=== PATIENT | female | born 1990 | race Caucasian/White ===

== ENCOUNTER → 2018-05-06 11:14 | Outpatient (CLI) | payer MEDICAID, SELFPAY ==
[2018-05-06 11:43] LABS: Basophils % 0.3 % (0.1-2.0); Eosinophils # 0.1 K/mm3 (0.0-0.4); Eosinophils % 1.4 % (0.1-12.0); Hematocrit 40.6 % (37.0-47.0); Hemoglobin 13.1 g/dL (12.2-16.2); Lymphocytes # 1.5 K/mm3 (0.7-4.5); Lymphocytes % 23.6 K/mm3 (10-50); Mean Corpuscular HGB Conc 32.3 g/dL (31.8-35.4); Mean Corpuscular Hemoglobin 29.8 pg (27.0-31.2); Mean Corpuscular Volume 92.3 fl (81-99); Mean Platelet Volume 8.3 fl (7.4-10.4); Monocytes # 0.4 K/mm3 (0.1-1.0); Monocytes % 6.7 % (1.7-9.3); Neutrophils # 4.4 K/mm3 (1.8-7.8); Platelet Count 203 K/mm3 (142-424); Red Cell Distribution Width 12.3 % (11.5-17.5); White Blood Count 6.4 K/mm3 (4.8-10.8)
--- NOTE | 2018-05-06 14:54 | US_ITS ---
US OB transvaginal HISTORY: ITS.REASON: US OB dates ORDERING PHYSICIAN: Sánchez Mead MD PATIENT AGE: 27 years COMPARISON: None FINDINGS: An intrauterine gestational sac is present with a pole with a crown-rump length of 3 cm correlating to gestational age of 10 weeks 0 days. heart tones are present with an FHR of 174 bpm's. Yolk sac is noted. The amnion and chorion have not yet fused. Adnexa: 17 mm left corpus luteum cyst. IMPRESSION: Live intrauterine gestation at 10 weeks 0 days as described above. Estimated due date by ultrasound is 12/05/2018
[2018-05-08 20:02] LABS: HIV Screen 4th Generation wRfx Non Reactive (Non Reactive); Rapid Plasma Reagin Ab Titer Non Reactive (NonRea<1:1); Rubella Antibodies, IgG 1.94 index (Immune >0.99)
[2018-05-08 20:03] LABS: Hepatitis B Surface Antigen Negative (Negative); Hepatitis C Antibody <0.1 s/co ratio (0.0-0.9)
== END ==
PROVIDERS: Family Provider Family Medicine; PCP Pediatrics; Visit Provider Nurse Practitioner Obstetrics & Gynecology
DX: O26.841 Uterine size-date discrepancy, first trimester (principal); Z34.90 Encounter for supervision of normal pregnancy, unspecified, unspecified trimester
CPT/HCPCS: 36415; 76830; 85025; 86592; 86703; 86762; 86850; 87340; 87380; G0432

== ENCOUNTER → 2018-07-16 08:26 | Outpatient (CLI) | payer MEDICAID, SELFPAY ==
--- NOTE | 2018-07-16 08:28 | US_ITS ---
US OB /maternal detail: INDICATION: ITS.REASON: US OB Complete ORDERING PHYSICIAN: Sánchez Mead MD PATIENT AGE: 27 years TECHNIQUE: ultrasound transabdominal scanning. COMPARISON: No previous relevant studies. FINDINGS: Single viable intrauterine gestation. Breech position. Placenta: Anterior placenta grade 1. There is average amount fluid. The cervix appears satisfactory. Closed and measuring 4 cm in length. Complete survey performed and was unremarkable on the submitted images as in PACS. No discrete anomalies identified on survey imaging by technologist. Active fetus. Three-vessel cord with satisfactory umbilical cord insertion. 4- chamber heart noted. Survey of brain & ventricles unremarkable. Face and neck survey unremarkable. Diaphragm and chest views unremarkable. Abdomen: Both kidneys noted and unremarkable. Stomach noted and satisfactory. Spine: Survey of the spine satisfactory with no anomalies identified nor imaged. Both arms and legs noted. Amniotic Fluid: Adequate. Maternal adnexa: No significant findings. Measurements: Average ultrasound age 19w3d. Gestational Age 19w5d. Estimated due date by ultrasound age 0112/07/2018. Estimated weight 303 grams. BPD = 19w1d OFD = 20w3d HC = 19w1d AC = 20w2d FL = 19w1d Growth Percentile= 40% based on established due date of 12/05/2018 Heart Rate = 144 Cerebellum = 20w1d Humerus = 19w3d HC/AC is 1.09 91.09-1.26). CI is 73% (70-86%). FL/BPD is 68%. FL/AC is 20%. IMPRESSION: There is a single live fetus present in breech presentation with average ultrasound age of 19 weeks 3 days. No obvious anomalies. All parameters correlate. Anterior placenta with average amniotic fluid volume. Please see above for detail
== END ==
PROVIDERS: Family Provider Family Medicine; PCP Pediatrics; Visit Provider Nurse Practitioner Obstetrics & Gynecology
DX: Z36.0 Encounter for antenatal screening for chromosomal anomalies (principal); Z3A.19 19 weeks gestation of pregnancy; Z34.90 Encounter for supervision of normal pregnancy, unspecified, unspecified trimester
CPT/HCPCS: 76811

== ENCOUNTER 2018-08-11 19:40 | Outpatient (CLI) | payer MEDICAID, SELFPAY ==
[2018-08-11 20:00] VITALS: BP 113/63; PULSE 77; RESP 17; O2SAT 100
[2018-08-11 20:30] VITALS: BMI 17.2
[2018-08-11 20:35] VITALS: BMI 17.2
[2018-08-11 20:40] VITALS: BP 107/38; PULSE 88; RESP 18; TEMP 36.8; O2SAT 100
[2018-08-11 20:46] LABS: Microscopic, Urine URINE MICROSCOPIC (MICROSCOPIC)
[2018-08-11 20:48] LABS: Appearance,Urine CLEAR (Clear); Bilirubin,Urine Negative (Negative); Blood, Urine Negative (Negative); Color,Urine YELLOW (Yellow); Glucose,Urine (UA) Negative (Negative); Ketones,Urine TRACE (Negative); Leukocyte Esterase,Urine 3+ (Negative); Nitrate,Urine Negative (Negative); Protein,Urine Negative (Negative); Specific Gravity, Urine 1.015 (1.005-1.030); Urobilinogen,Urine 0.2 EU/dl (0.2)
[2018-08-11 21:09] LABS: Amphetamine/Metha Screen,Urine Negative ng/mL (<1000); Bacteria,Urine 1+ /lpf; Barbiturates Screen,Urine Negative ng/mL (<200); Benzodiazepines Screen,Urine Negative ng/mL (<200); Cannabinoid Screen,Urine Positive ng/mL (<50); Cocaine Screen,Urine Negative ng/mL (<300); Methadone Screen,Urine Negative ng/mL (<300); Mucus,Urine 1+ /lpf; Opiate Screen,Urine Negative ng/mL (<300); Phencyclidine Screen,Urine Negative ng/mL (<25); Squamous Epithelial Cell,Urine TNTC #/hpf (0-5); WBC,Urine 20-50 #/hpf (0-3)
== END 2018-08-11 21:45 | disposition home or self-care (01) ==
LOC: OBOUT 19:43 → OB 19:43
PROVIDERS: PCP Nurse Practitioner Obstetrics & Gynecology; Visit Provider Obstetrics & Gynecology
DX: O26.892 Other specified pregnancy related conditions, second trimester (principal); Z3A.23 23 weeks gestation of pregnancy; R42 Dizziness and giddiness; R51 Headache
CPT/HCPCS: 59025; 80305; 81001; 87086

== ENCOUNTER 2018-09-24 00:24 | Outpatient (CLI) | payer MEDICAID, SELFPAY ==
[2018-09-24 00:34] VITALS: BMI 17.9
[2018-09-24 00:44] VITALS: BP 109/66; PULSE 90; RESP 16; TEMP 36.7; O2SAT 98; BMI 17.9
[2018-09-24 00:56] LABS: Microscopic, Urine URINE MICROSCOPIC (MICROSCOPIC)
[2018-09-24 01:10] LABS: Appearance,Urine CLEAR (Clear); Bilirubin,Urine Negative (Negative); Blood, Urine Negative (Negative); Color,Urine YELLOW (Yellow); Glucose,Urine (UA) Negative (Negative); Ketones,Urine TRACE (Negative); Leukocyte Esterase,Urine 2+ (Negative); Nitrate,Urine Negative (Negative); Protein,Urine Negative (Negative); Urobilinogen,Urine 0.2 EU/dl (0.2)
[2018-09-24 01:18] LABS: Bacteria,Urine 1+ /lpf; Mucus,Urine 1+ /lpf
[2018-09-24 01:43] LABS: Amphetamine/Metha Screen,Urine Negative ng/mL (<1000); Barbiturates Screen,Urine Negative ng/mL (<200); Benzodiazepines Screen,Urine Negative ng/mL (<200); Cannabinoid Screen,Urine Positive ng/mL (<50); Cocaine Screen,Urine Negative ng/mL (<300); Methadone Screen,Urine Negative ng/mL (<300); Opiate Screen,Urine Negative ng/mL (<300); Phencyclidine Screen,Urine Negative ng/mL (<25)
== END 2018-09-24 04:30 | disposition home or self-care (01) ==
LOC: OBOUT 00:25 → OB 00:26
PROVIDERS: PCP Nurse Practitioner Family; Visit Provider Obstetrics & Gynecology
DX: O47.03 False labor before 37 completed weeks of gestation, third trimester (principal); Z3A.30 30 weeks gestation of pregnancy
CPT/HCPCS: 59025; 80305; 81001; 87086; 96360; 96372; J0595

== ENCOUNTER 2018-10-17 03:52 | Observation (INO) ==
[2018-10-17 05:06] LABS: Appearance,Urine CLOUDY (Clear); Bilirubin,Urine Negative (Negative); Blood, Urine Negative (Negative); Color,Urine YELLOW (Yellow); Glucose,Urine (UA) Negative (Negative); Ketones,Urine Negative (Negative); Leukocyte Esterase,Urine 1+ (Negative); PH,Urine 7.5 (5.0-8.5); Protein,Urine Negative (Negative); Urobilinogen,Urine 0.2 EU/dl (0.2)
[2018-10-17 05:08] LABS: Amorphous Sediment,Urine 4+ /lpf; Microscopic, Urine URINE MICROSCOPIC (MICROSCOPIC)
[2018-10-17 05:13] LABS: Amphetamine/Metha Screen,Urine Negative ng/mL (<1000); Barbiturates Screen,Urine Negative ng/mL (<200); Benzodiazepines Screen,Urine Negative ng/mL (<200); Cannabinoid Screen,Urine Negative ng/mL (<50); Cocaine Screen,Urine Negative ng/mL (<300); Methadone Screen,Urine Negative ng/mL (<300); Opiate Screen,Urine Negative ng/mL (<300); Phencyclidine Screen,Urine Negative ng/mL (<25)
[2018-10-17 06:40] LABS: Basophils % 0.1 % (0.1-2.0); Eosinophils # 0.1 K/mm3 (0.0-0.4); Eosinophils % 0.3 % (0.1-12.0); Hematocrit 33.8 % (37.0-47.0); Hemoglobin 11.5 g/dL (12.2-16.2); Lymphocytes % 10.9 % (10-50); Mean Corpuscular HGB Conc 34.1 g/dL (31.8-35.4); Mean Corpuscular Hemoglobin 32.5 pg (27.0-31.2); Mean Corpuscular Volume 95.3 fl (81-99); Mean Platelet Volume 8.3 fl (7.4-10.4); Monocytes # 0.7 K/mm3 (0.1-1.0); Monocytes % 3.8 % (1.7-9.3); Neutrophils # 15.7 K/mm3 (1.8-7.8); Neutrophils % 84.8 % (37.0-80.0); Platelet Count 206 K/mm3 (142-424); Red Blood Count 3.55 M/mm3 (4.20-5.40); Red Cell Distribution Width 13.6 % (11.5-17.5); White Blood Count 18.5 K/mm3 (4.8-10.8)
[2018-10-17 06:45] LABS: Anion Gap 13.9 mEq/L (5-15); Calcium 9.2 mg/dL (8.5-10.1)
[2018-10-17 06:48] LABS: Potassium 2.9 mmoL/L (3.5-5.1)
--- NOTE | 2018-10-17 06:54 | Progress Note ---
Internal Medicine - PN: Subj Interval history: This 27-year-old 2, para 1, Ab0 white female (previous section) has had care with Dr. Mead. In the last 2 weeks she has been here, at [facility], and at [facility] with complaints of contractions. She has been variously told that her cervix is "closed, fingertip, 1-2 cm, 2-3 cm" by various examiners. After coitus later this morning she began jennifer at approximately 0200 and arrived by EMS with strong contractions. Examination by the labor room nurse revealed her cervix to be a fingertip. She was given IV fluids and a dose of Brethine which initially relaxed her contractions, but they returned and she was given a second dose of Brethine, but continued to contract. Her urinalysis shows 1+ leukocytes. Her tox screen is negative. My exam reveals her cervix to be 50%, the fingertip, with a high presenting part. Bag of water intact. She has been given a first dose of steroid (second dose in 24 hours) and started on IV ampicillin (2 g every 6 hours). She has also been started on intravenous magnesium sulfate for neuroprotection and to allay contractions. Dr. Blandon will be assuming care of this morning. Exam Vital signs and Labs for Last 24 Hours: Temp Pulse Resp BP Pulse Ox 98.2 F 94 H 18 113/79 98 10/17/18 04:20 10/17/18 04:20 10/17/18 04:20 10/17/18 04:20 10/17/18 04:20 Laboratory Results - last 24 hr 10/17/18 04:57: Urine Color Yellow, Urine Appearance Cloudy, Urine pH 7.5, Ur Specific [place] 1.020, Urine Protein Negative, Urine Glucose (UA) Negative, Urine Ketones Negative, Urine Blood Negative, Urine Nitrate Negative, Urine Bi lirubin Negative, Urine Urobilinogen 0.2, Ur Leukocyte Esterase 1+ A, Urine WBC 3-5, Amorphous Sediment 4+ 10/17/18 04:57: Urine Opiates Screen Negative, Urine Methadone Screen Negative, Ur Barbituates Screen Negative, Ur Phencyclidine Scrn Negative, Ur Amphetamines Screen Negative, U Benzodiazepines Scrn Negative, Urine Cocaine Screen Negative, U Marijuana (THC) Screen Negative 10/17/18 06:25: WBC 18.5 H, RBC 3.55 L, Hgb 11.5 L, Hct 33.8 L, MCV 95.3, MCH 32.5 H, MCHC 34.1, RDW 13.6, Plt Count 206, MPV 8.3, Neut % (Auto) 84.8 H, Lymph % (Auto) 10.9, [place] % (Auto) 3.8, Eos % (Auto) 0.3, Baso % (Auto) 0.1, Neut # (Auto) 15.7 H, Lymph # (Auto) 2.0, [place] # (Auto) 0.7, Eos # (Auto) 0.1, Baso # (Auto) 0.0 10/17/18 06:25: Sodium 137, Potassium 2.9 L*, Chloride 102, Carbon Dioxide 24, Anion Gap 13.9, BUN 8, Creatinine 0.58, Estimated Creat Clear 119, Estimated GFR 127, Est GFR ( Amer) 153, Glucose 105, Calcium 9.2, Magnesium 1.1 L I & O for Last 24 hours: Intake & Output 10/14/18 10/15/18 10/16/18 10/17/18 11:59 11:59 11:59 11:59 Weight 112 lb
[2018-10-17 07:18] LABS: Lymphocytes % 10 % (10-50); Monocytes % 2 % (2-9); Neutrophils % 88 % (42-76); Total Cells Counted 100
[2018-10-17 11:44] VITALS: BP 108/55
== END 2018-10-17 17:45 | disposition left against medical advice (07) ==
LOC: OBOUT 03:52 → OB 03:57 → INTOOBSV 05:55
PROVIDERS: ADMIT Obstetrics & Gynecology; ATTEND Nurse Practitioner Obstetrics & Gynecology

== ENCOUNTER 2018-10-18 15:09 | Outpatient (CLI) | payer MEDICAID, SELFPAY ==
[2018-10-18 15:19] VITALS: RESP 20; TEMP 36.7; O2SAT 100; BMI 18.4; BMI 40.6
== END 2018-10-18 16:45 | disposition home or self-care (01) ==
LOC: OBOUT 15:11 → OB 15:11
PROVIDERS: PCP Nurse Practitioner; Visit Provider Obstetrics & Gynecology
DX: O60.03 Preterm labor without delivery, third trimester (principal); Z3A.33 33 weeks gestation of pregnancy
CPT/HCPCS: 96372

== ENCOUNTER → 2018-11-04 17:56 | Outpatient (CLI) | payer MEDICAID, SELFPAY ==
[2018-11-04 21:07] LABS: Amphetamine/Metha Screen,Urine Negative ng/mL (<1000); Barbiturates Screen,Urine Negative ng/mL (<200); Benzodiazepines Screen,Urine Negative ng/mL (<200); Cannabinoid Screen,Urine Positive ng/mL (<50); Cocaine Screen,Urine Negative ng/mL (<300); Methadone Screen,Urine Negative ng/mL (<300); Opiate Screen,Urine Negative ng/mL (<300); Phencyclidine Screen,Urine Negative ng/mL (<25)
[2018-11-10 17:34] LABS: Buprenorphine, Urine Negative (Cutoff=10)
== END ==
PROVIDERS: Visit Provider Nurse Practitioner Obstetrics & Gynecology
DX: Z34.90 Encounter for supervision of normal pregnancy, unspecified, unspecified trimester (principal)
CPT/HCPCS: 80305; 80307; 86403

== ENCOUNTER → 2018-11-11 12:50 | Outpatient (CLI) | payer MEDICAID, SELFPAY ==
--- NOTE | 2018-11-11 12:51 | US_ITS ---
US OB biophysical profile: INDICATION: ITS.REASON: US OB BPP Growth- SGA ORDERING PHYSICIAN: Sánchez Mead MD PATIENT AGE: 28 years TECHNIQUE: ultrasound transabdominal scanning. COMPARISON: Previous complete anatomic survey ultrasound 07/16/2018- at which time average ultrasound age with 19 weeks 3 days FINDINGS: Single viable intrauterine gestation. Cephalic position Currently. Placenta: Anterior mature placenta with basal calcification grade 3 cervix appears satisfactory. Closed and measuring 3.25 in length. Limited survey performed and was unremarkable on the submitted images as in PACS. No discrete anomalies identified on survey imaging by technologist. Active fetus.Three-vessel cord with satisfactory umbilical cord insertion. Survey of brain & ventricles & posterior fossa unremarkable Limited Face and neck survey unremarkable. Nasion intact Diaphragm and chest views unremarkable. 4- chamber heart imaged. Cine loop included.. Abdomen: Both kidneys noted and unremarkable. Stomach /bladder identified. Only limited survey spine at this setting but no apparent anomalies identified nor imaged. Both arms and legs noted. Appears to be a female fetus. Amniotic Fluid: Adequate. . Measurements: Average ultrasound age 35 week 2 day. Gestational Age 37 week 0 day based on LMP 02/25/2018. Estimated due date by ultrasound age 112/14/2018. Estimated weight 2361-g grams. +/- 345 g . growth Percentile 4% (3-97%) BPD = 35 week 6 day OFD = not obtained HC = 37 week 3 day. AC = 32 weeks 6 day FL = 35 week 0 day As above abdominal circumference has not progressed to the degree of other growth measurements. This may reflect early asymmetric IUGR. Also Specifically graph in pacs Plotted progression of AC , EFW, BPD, FL versus previous scan at 20 week scan. Previously all parameters mediaN value on the 20 week scan, but now all parameters have fallen somewhat. However the abdominal circumference is over 2 standard deviations below anticipated growth pattern. . MAISHA = 14.12 with largest pocket] quadrant measuring 4 cm size. Heart Rate = 150 BPM. ======= SD ratio = 2.4 on the second sampling Ri = 0.58 with SD ratio = 3.0 on first sampling with Ri = 0.58 ====== BIOPHYSICAL PROFILE: 8 of possible 8 points 2+ score for each category: breathing; Movement; tone; Amniotic fluid volume HC/AC = 1.14.(1.09-1.26.) CI = 75%.(70-86%). FL/BPD is 77% (71-87%.) FL/AC is 24% (20-24 %.] =======IMPRESSION: 35 week 2 day Average Ultrasound Age.. Cephalic position Anterior mature placenta.grade 3 Biophysical Profile:. 8 of 8 points . MAISHA 14.12 Please note the growth plots PACS when compared to the 20 week scan.... All parameters have fallen somewhat below the mean, however I would note that the abdominal circumference has fallen greater than 2 standard deviations below the mean & fallen more than other measured parameters, May reflect partial asymmetric IUGR pattern . Otherwise Today's follow-up limited Anatomical survey unremarkable.
== END ==
PROVIDERS: PCP Nurse Practitioner; Visit Provider Nurse Practitioner Obstetrics & Gynecology
DX: O36.5131 Maternal care for known or suspected placental insufficiency, third trimester, fetus 1 (principal)
CPT/HCPCS: 76816; 76819; 76820

== ENCOUNTER 2018-11-25 05:31 | Inpatient (IN) ==
[2018-11-25 06:16] LABS: Microscopic, Urine URINE MICROSCOPIC (MICROSCOPIC)
[2018-11-25 06:21] LABS: Basophils # 0.1 K/mm3 (0-0.2); Basophils % 0.6 % (0.1-2.0); Eosinophils # 0.2 K/mm3 (0.0-0.4); Eosinophils % 1.3 % (0.1-12.0); Hematocrit 41.5 % (37.0-47.0); Hemoglobin 14.2 g/dL (12.2-16.2); Lymphocytes # 2.4 K/mm3 (0.7-4.5); Lymphocytes % 18.2 % (10-50); Mean Corpuscular HGB Conc 34.2 g/dL (31.8-35.4); Mean Corpuscular Hemoglobin 33.1 pg (27.0-31.2); Mean Corpuscular Volume 96.8 fl (81-99); Mean Platelet Volume 9.7 fl (7.4-10.4); Monocytes # 0.6 K/mm3 (0.1-1.0); Monocytes % 4.8 % (1.7-9.3); Neutrophils # 9.9 K/mm3 (1.8-7.8); Neutrophils % 75.2 % (37.0-80.0); Platelet Count 207 K/mm3 (142-424); Red Blood Count 4.29 M/mm3 (4.20-5.40); Red Cell Distribution Width 13.6 % (11.5-17.5); White Blood Count 13.1 K/mm3 (4.8-10.8)
[2018-11-25 06:21] LABS: Appearance,Urine SL CLOUDY (Clear); Bilirubin,Urine Negative (Negative); Blood, Urine TRACE-L (Negative); Color,Urine YELLOW (Yellow); Glucose,Urine (UA) Negative (Negative); Ketones,Urine Negative (Negative); Leukocyte Esterase,Urine 3+ (Negative); Protein,Urine Negative (Negative); Urobilinogen,Urine 0.2 EU/dl (0.2)
[2018-11-25 06:25] LABS: Anion Gap 15.5 mEq/L (5-15); Calcium 9.5 mg/dL (8.5-10.1); Potassium 3.5 mmoL/L (3.5-5.1)
[2018-11-25 06:36] LABS: Bacteria,Urine 3+ /lpf; RBC,Urine Occasional #/hpf (0-3)
--- NOTE | 2018-11-25 07:10 | Progress Note ---
[facility] Anesthesia Checklist - Structural Data Admitted From: Inpatient Planned Operative Procedure/s: c/section Consent for Planned Operative Procedure(s) Verified: Yes - Airway Assessment C-Spine Mobility Assessed: Yes TMJ Mobility Assessed: Yes Dentition: Good Dentition - Neurological Assessment Level of Consciousness: Awake, Alert, Appropriate - Anesthesia Plan Anesthesia Risk discussed: Yes Anesthesia Plan: Verified ASA Class: II Anesthesia Type: Spinal [facility] History I have reviewed the patient's past medical history: Yes Medical History: Reports:: Anxiety, Depression Denies:: Migraine, MRSA Have you ever received a pneumonia vaccine?: No Have you received a flu vaccine this season?: No Other Surgeries: Yes: (08/14/2017) Amputation: No Fractures: No - *Social History Smoking Status: Current every day smoker Tobacco Type: cigarettes # Packs/Day (cigarettes): 1 Alcohol Intake: current Alcohol Intake Frequency:: other Substance Use Type: marijuana Occupational Status: employed Housing: apartment Household Members: significant other, family - Psychiatric History Pschychiatric History:: Reports:: Anxiety, Depression *Family Hx:: No significant family history Para: 1
[2018-11-25 07:37] LABS: Amphetamine/Metha Screen,Urine Negative ng/mL (<1000); Barbiturates Screen,Urine Negative ng/mL (<200); Benzodiazepines Screen,Urine Negative ng/mL (<200); Cannabinoid Screen,Urine Negative ng/mL (<50); Cocaine Screen,Urine Negative ng/mL (<300); Methadone Screen,Urine Negative ng/mL (<300); Opiate Screen,Urine Negative ng/mL (<300); Phencyclidine Screen,Urine Negative ng/mL (<25)
--- NOTE | 2018-11-25 08:07 | Operative Note ---
Date of procedure: 11/25/18 Pre-op Diagnosis:: Term , previous section Post-op Diagnosis:: Term , previous section Procedure performed:: Repeat lower segment transverse section Surgeon:: Sánchez Mead MD Gaming Dealer(s):: Laura Kidd KETTLE GIRL:: Vega Davis Anesthesia: spinal Estimated blood loss (mL): 400 Clinical Note:: She is a 28-year-old 2 para 1 who was 39 weeks gestational age. She has had a previous section and as a result of that was offered repeat lower segment transverse section at term. Operative findings:: She delivered a liveborn female child at 7:40 AM on the morning of November 25, 2018. The baby had Apgars of 9 at 1 minute and 9 at 5 minutes. Fluid was clear. Ovaries and tubes appeared normal. PH was 7.38. Operative note:: She was taken to the operating room where spinal anesthesia was found be adequate. She was prepped and draped in normal sterile fashion in the supine position with a leftward tilt. A Saha catheter was in the bladder. A Pfannenstiel skin incision was made with knife then carried through to the underlying layer of fascia with cautery. The fascia was opened in the midline with cautery and extended laterally using Rayo scissors. Spencer clamps were applied to the superior aspect of the fascial incision which was tented up and the underlying rectus muscles dissected off using cautery. The Udell clamps were then applied to the inferior aspect of the fascial incision which in a similar fashion was tented up and the underlying rectus muscles dissected off using cautery. The rectus muscles were then in the midline, the peritoneum identified, and entered sharply with Metzenbaum scissors. This incision was then extended superiorly and inferiorly with cautery. We had good visualization of the bladder inferiorly. The Rolando device was then placed within the abdominal cavity. The bladder peritoneum was then opened in the midline and extended laterally using Metzenbaum scissors. A bladder flap was created digitally. Transverse incision was made through the uterine muscle to the amnion. This incision was then extended laterally using fingers traction. The amnion was entered sharply with knife. There was clear amniotic fluid. The infant's head was then delivered atraumatically. This was followed by the anterior shoulder and the rest of the 's body atraumatically. The oropharynx and nasopharynx were bulb suctioned. The infant was then handed off to Dr. Kaye who assigned Apgars of 9 at 1 minute and 9 at 5 minutes. We then obtained cord blood as well as cord pH. The pH was 7.38. Using gentle traction on the cord and countertraction on the fundus I was able to easily deliver the placenta intact. It had a normal three-vessel cord. The uterus was then cleared of clots and debris . The uterine incision was then closed using running 0 Vicryl suture in a locked fashion. A second layer of the same suture was used to imbricate the first layer. The bladder peritoneum was then closed using running 2-0 Vicryl suture in a locked fashion. The gutters and cul-de-sac were then cleared of clots and debris . Once again hemostasis was assured. The peritoneum was grasped with Elisa clamps and closed using running 2-0 Vicryl suture. The rectus muscles were then reapproximated using running 0 Vicryl suture. The fascia was closed using running #1 Vicryl suture. The subcutaneous tissues were then irrigated with warm water followed by closure Norberto's fascia using running 2-0 Monocryl suture. The skin was closed with shy. I then cleaned the skin with Hibiclens. Sterile dressings were applied. She tolerated the procedure well and was taken to the recovery room in excellent condition. All sponges minute and needle counts were correct. Estimate a blood loss was approximately 400 mL. Condition: stable Disposition: PACU Specimens:: None Complications:: None
--- NOTE | 2018-11-25 08:11 | Progress Note ---
[facility] Anesthesia Record Part I Intake, IV Amount: 1,100 Estimated blood loss (mL): 400 Urine output (mL): 200 Blood Products used (#): none Blood Pressure: 123/60 SaO2: 99 Pulse Rate: 107 Respiratory Rate: 20 Temperature: 97.5 F Patient is:: Awake, Stable Stable to PACU at:: 08:08
--- NOTE | 2018-11-25 08:11 | Progress Note ---
[facility] Anesthesia Record Part II Discharge Time: 08:38 Destination: Obstetric PACU nurse assessment reviewed?: Yes Patient Condition:: Fair Anesthesia Complications:: None
--- NOTE | 2018-11-25 08:26 | Pharmacy Consult Notes ---
[facility] Pharmacy VTE Monitoring - Patient Demographics Admission date: 11/25/18 Report Date: 11/25/18 Time: 08:26 Allergies/Adverse Reactions: Patient Allergies No Known Allergies Allergy (Verified 11/18/18 14:41) Height: 1.6 m Weight: 51.256 kg - VTE Risk Labs: VTE Related Lab Results Hgb 14.2 g/dL (12.2-16.2) 11/25/18 06:00 Hct 41.5 % (37.0-47.0) 11/25/18 06:00 Plt Count 207 K/mm3 (142-424) 11/25/18 06:00 BUN 6 mg/dL (7-18) L 11/25/18 06:00 Creatinine 0.67 mg/dL (0.55-1.02) 11/25/18 06:00 Estimated Creat Clear 103 mL/min (50-200) 11/25/18 06:00 - Prophylaxis VTE Prophylaxis Ordered?: Yes Types of VTE Prophylaxis: IPCS Thigh High Location of Applied Device: Bilateral Lower Extremeties - VTE Diagnosis Confirmed Treatment or plan recommended: Continue Current Treatment
--- NOTE | 2018-11-25 08:37 | History & Physical Report ---
OB - H&P: HPI Antepartum - History of Present Illness Chief complaint: Previous section History of present illness: She is here for a repeat lower segment transverse section at term. - History of Present Criteria for establishing EDC:: LMP confirmed by 1st trimester US care: good care Ultrasounds: normal 1st trimester US, normal mid trimester US Obstetrical complications: growth restriction Medical complications: none H History I have reviewed the patient's past medical history: Yes Medical History: Reports:: Anxiety, Depression Denies:: Migraine, MRSA Have you ever received a pneumonia vaccine?: No Have you received a flu vaccine this season?: No Other Surgeries: Yes: (08/14/2017) Amputation: No Fractures: No - *Social History Smoking Status: Current every day smoker Tobacco Type: cigarettes # Packs/Day (cigarettes): 1 Alcohol Intake: current Alcohol Intake Frequency:: other Substance Use Type: marijuana Occupational Status: employed Housing: apartment Household Members: significant other, family - Psychiatric History Pschychiatric History:: Reports:: Anxiety, Depression *Family Hx:: No significant family history Para: 1 Review of Systems - Review of Systems Review of systems:: pertinent systems reviewed and negative unless documented below Meds Home Medications Medication Instructions Recorded Confirmed Type bupropion HCl XL 150 mg 24 hr 300 mg PO DAILY 05/06/18 11/25/18 History tablet, extended release 1 tab PO HS 05/06/18 11/25/18 History vitamin,calcium,yonbzzji-pjdd-svsvf acid tablet Allergies Allergy/AdvReac Type Severity Reaction Status Date / Time No Known Allergies Allergy Verified 11/18/18 14:41 OB - H&P: Exam - Physical Exam Vital signs: Temp Pulse Resp BP Pulse Ox 97.5 F L 107 H 20 123/60 99 11/25/18 08:11 11/25/18 08:11 11/25/18 08:11 11/25/18 08:11 11/25/18 08:08 - Constitutional no acute distress - Routine HEENT Exam Head: Present: normocephalic Eye: Present: EOMI, PERRL ENT: Present: mucous membranes moist - Routine Neck Exam Present: supple, full ROM - Routine Respiratory Exam Absent: accessory muscle use (good air entry bilaterally), respiratory distress, wheezes, crackles - Routine Cardiovascular Exam Present: RRR. Absent: murmur - Routine Abdominal Exam Present: soft, normoactive bowel sounds. Absent: tenderness, distended, g uarding - Routine Rectal Exam Patient deferred: visual exam, digital exam - Routine Exam Patient deferred: external exam, groin exam, perineal exam - Routine Extremities Exam Present: full ROM. Absent: cyanosis, edema - Routine Skin Exam Present: intact. Absent: cyanosis - Routine Neurological Exam Present: alert, oriented X3 - Routine Psychiatric Exam Present: normal affect OB - Results - Labs Labs: Short CBC 11/25/18 Range/Units 06:00 WBC 13.1 H (4.8-10.8) K/mm3 Hgb 14.2 (12.2-16.2) g/dL Hct 41.5 (37.0-47.0) % Plt Count 207 (142-424) K/mm3 BMP 11/25/18 06:00 Sodium 137 Potassium 3.5 Chloride 102 Carbon Dioxide 23 BUN 6 L Creatinine 0.67 Glucose 78 Calcium 9.5 Urine 11/25/18 Range/Units 05:50 Urine Color Yellow (Yellow) Urine Appearance Sl cloudy (Clear) Urine pH 7.0 (5.0-8.5) Ur Specific [place] 1.010 (1.005-1.030) Urine Protein Negative (Negative) Urine Glucose (UA) Negative (Negative) OB - A/P Antepartum (1) delivery delivered Current visit: Yes Status: Acute (2) Previous section Current visit: No Status: Acute - Additional Plan Planning to breastfeed?: Yes Plan: other Additional Information:: She is here today for a repeat lower segment transverse section at term.
[2018-11-25 16:17] LABS: Hematocrit 38.9 % (37.0-47.0)
[2018-11-25 18:31] LABS: Hemoglobin 12.7 g/dL (12.2-16.2)
[2018-11-26 06:56] LABS: Eosinophils # 0.1 K/mm3 (0.0-0.4); Eosinophils % 0.5 % (0.1-12.0); Hematocrit 32.9 % (37.0-47.0); Lymphocytes # 1.3 K/mm3 (0.7-4.5); Monocytes # 0.5 K/mm3 (0.1-1.0)
[2018-11-26 07:06] LABS: Basophils % 0.2 % (0.1-2.0); Lymphocytes % 9.7 % (10-50); Mean Corpuscular Hemoglobin 32.4 pg (27.0-31.2); Mean Platelet Volume 9.2 fl (7.4-10.4); Monocytes % 3.9 % (1.7-9.3); Neutrophils # 11.8 K/mm3 (1.8-7.8); Neutrophils % 85.8 % (37.0-80.0); Platelet Count 140 K/mm3 (142-424); Red Blood Count 3.35 M/mm3 (4.20-5.40); Red Cell Distribution Width 13.6 % (11.5-17.5); White Blood Count 13.8 K/mm3 (4.8-10.8)
[2018-11-26 07:07] LABS: Hemoglobin 10.8 g/dL (12.2-16.2)
[2018-11-26 08:06] LABS: Lymphocytes % 11 % (10-50); Monocytes % 6 % (2-9); Neutrophils % 82 % (42-76); RBC Morphology Normal; Total Cells Counted 100
--- NOTE | 2018-11-26 08:52 | Progress Note ---
Internal Medicine - PN: Subj *Date: 11/26/18 *Time: 08:51 Interval history: She continues to do well. She still has some pain. She has been taking oxycodone as well as Toradol. We will go ahead and change from oxycodone to hydromorphone. Exam Vital signs and Labs for Last 24 Hours: Temp Pulse Resp BP Pulse Ox 97.5 F L 86 16 114/61 99 11/25/18 20:23 11/25/18 20:23 11/25/18 20:23 11/25/18 20:23 11/25/18 20:23 Laboratory Results - last 24 hr 11/25/18 07:26: Urine Color Yellow, Urine Appearance Clear, Urine pH 7.5, Ur Specific [place] 1.010, Urine Protein Negative, Urine Glucose (UA) Negative, U rine Ketones Negative, Urine Blood Negative, Urine Nitrate Negative, Urine Bilirubin Negative, Urine Urobilinogen 0.2, Ur Leukocyte Esterase Negative, Urine RBC None, Urine WBC Occasional, Ur Squamous Epith Cells None, Urine Bacteria Trace 11/25/18 16:05: Hgb 12.7 D, Hct 38.9 11/26/18 06:46: WBC 13.8 H, RBC 3.35 L, Hgb 10.8 L D, Hct 32.9 L, MCV 98.0, MCH 32.4 H, MCHC 33.0, RDW 13.6, Plt Count 140 L D, MPV 9.2, Neut % (Auto) 85.8 H, Lymph % (Auto) 9.7 L, [place] % (Auto) 3.9, Eos % (Auto) 0.5, Baso % (Auto) 0.2, Neut # (Auto) 11.8 H, Lymph # (Auto) 1.3, [place] # (Auto) 0.5, Eos # (Auto) 0.1, Baso # (Auto) 0.0, Total Counted 100, Neutrophils % (Manual) 82 H, Lymphocytes % (Manual) 11, Monocytes % (Manual) 6, Metamyelocytes % 1.0, Platelet Estimate Slight decrease, RBC Morphology Normal I & O for Last 24 hours: Intake & Output 11/23/18 11/24/18 11/25/18 11/26/18 11:59 11:59 11:59 11:59 Intake Total 1100 / 1100 Output Total 200 / 200 Balance 900 / 900 Weight 113 lb Microbiology Reports for the Last 24 Hours: Microbiology 11/25/18 05:50 Urine,Clean Catch Urine Culture - Preliminary NO GROWTH AFTER 24 HOURS - Constitutional no acute distress Assessment and Plan (1) delivery delivered Current visit: Yes Status: Acute Category: Medical Code(s): O82 - Encounter for delivery without indication (2) Previous section Current visit: No Status: Acute Category: Surgical Code(s): Z98.891 - History of uterine scar from previous surgery - Assessment and plan all Dx Assessment and Plan for all problems:: She is doing well. We will plan to send her home in 48 hours. We will go ahead and start hydromorphone 2 mg p.o. every 3 hours as needed for pain.
[2018-11-27 08:44] VITALS: BP 109/62
--- NOTE | 2018-11-27 09:12 | Progress Note ---
Internal Medicine - PN: Subj *Date: 11/27/18 *Time: 09:12 Interval history: She continues to do well. She is eating and ambulating. She is breast-feeding. Lochia is normal. Her pain is well controlled. Exam Vital signs and Labs for Last 24 Hours: Temp Pulse Resp BP Pulse Ox 97.8 F 70 17 109/62 L 100 11/27/18 08:00 11/27/18 08:00 11/27/18 08:00 11/27/18 08:00 11/27/18 08:00 I & O for Last 24 hours: Intake & Output 11/24/18 11/25/18 11/26/18 11/27/18 11:59 11:59 11:59 11:59 Intake Total 1100 / 1100 Output Total 200 / 200 Balance 900 / 900 Weight 113 lb Microbiology Reports for the Last 24 Hours: Microbiology 11/25/18 05:50 Urine,Clean Catch Urine Culture - Final NO GROWTH AFTER 48 HOURS - Constitutional no acute distress Assessment and Plan (1) delivery delivered Current visit: Yes Status: Acute Category: Medical Code(s): O82 - Encounter for delivery without indication (2) Previous section Current visit: No Status: Acute Category: Surgical Code(s): Z98.891 - History of uterine scar from previous surgery - Assessment and plan all Dx Assessment and Plan for all problems:: She is doing very well today. We will plan to send her home tomorrow.
--- NOTE | 2018-11-27 09:16 | Discharge Summary ---
General - General Admission date:: 11/25/18 Discharge date: 11/28/18 HPI HPI: She is a 28-year-old 2 now para 2 who was 39 weeks gestational age. She is had a previous section and as a result of that was brought in for repeat lower segment her section at term. Hospital Course Hospital Course: On November 25, 2018 she underwent a repeat lower segment transverse section. She delivered a liveborn female child at 7:40 AM. The baby weighed 5 pounds 6 ounces and was 18 inches long. She had Apgars of 9 at 1 minute and 9 at 5 minutes. PH was 7.38. She has done well and has remained afebrile throughout her hospitalization. She is eating and drinking and ambulating. She is breast- feeding. Her lochia is normal. She is discharged home to follow-up with me in ultimately 2 weeks time. She will continue with her vitamins and iron. She will take pwbc-zzl-kvnoees ibuprofen and Tylenol. He was given a prescription for hydromorphone 2 mg to take 1 every 4 hours as needed for pain. She was given 20 tablets. Rhogam Administration: Not Indicated Objective Vital signs: Temp Pulse Resp BP Pulse Ox 97.8 F 70 17 109/62 L 100 11/27/18 08:00 11/27/18 08:00 11/27/18 08:00 11/27/18 08:00 11/27/18 08:00 no acute distress - *Routine HEENT Exam Head: Present: normocephalic DS: Diagnosis - Discharge Diagnosis (1) delivery delivered Status: Acute (2) Previous section Status: Acute Discharge Plan - Patient Discharge Instructions ACTIVITY: No heavy lifting DIET: continue same diet Patient Instructions: How to Care for a Surgical Wound, Depression, , Hemorrhage, DI for Postoperative Pain, [facility] Post Discharge Instructions - Follow up Plan Follow up with: Sánchez Mead MD [Staff Physician] - 12/09/18 2:00 pm Disposition: Home, [facility] Medications: Home Medications Medication Instructions Recorded Confirmed Type bupropion HCl XL 150 mg 24 hr 300 mg PO DAILY 05/06/18 11/25/18 History tablet, extended release 1 tab PO HS 05/06/18 11/25/18 History vitamin,calcium,drucurgd-ulis-mfrga acid tablet Hydromorphone HCl [Hydromorphone 2 mg PO Q4HP PRN #20 tab 11/27/18 Rx 2mg Tab] Prescriptions/Medication Reconciliation: New Hydromorphone HCl [Hydromorphone 2mg Tab] 2 mg PO Q4HP PRN #20 tab PRN Reason: Severe Pain Continue bupropion HCl XL 150 mg 24 hr tablet, extended release 300 mg PO DAILY vitamin,calcium,dvkbldwn-eecn-tljhp acid tablet 1 tab PO HS
--- NOTE | 2018-11-28 08:52 | Progress Note ---
Internal Medicine - PN: Subj *Date: 11/28/18 *Time: 08:51 Interval history: This is postop day #3. The patient is afebrile. Her vital signs are stable. Her hemoglobin is 10.8 g, but she is clinically stable. Her abdomen is soft. She does have a hematoma above and below the incision, but the incision itself is clean and shy will be removed, with Steri-Strips placed, today. She is instructed to use a heating pad on that area. She is to return to see Dr. Mead in 2 weeks. Exam Vital signs and Labs for Last 24 Hours: Temp Pulse Resp BP Pulse Ox 97.8 F 70 17 109/62 L 100 11/27/18 08:00 11/27/18 08:00 11/27/18 08:00 11/27/18 08:00 11/27/18 08:00 I & O for Last 24 hours: Intake & Output 11/25/18 11/26/18 11/27/18 11/28/18 11:59 11:59 11:59 11:59 Intake Total 1100 / 1100 Output Total 200 / 200 Balance 900 / 900 Weight 113 lb Microbiology Reports for the Last 24 Hours: Microbiology 11/25/18 05:50 Urine,Clean Catch Urine Culture - Final NO GROWTH AFTER 48 HOURS Assessment and Plan (1) delivery delivered Current visit: Yes Status: Acute Category: Medical Code(s): O82 - Encounter for delivery without indication (2) Previous section Current visit: No Status: Acute Category: Surgical Code(s): Z98.891 - History of uterine scar from previous surgery
== END 2018-11-28 14:15 | disposition home or self-care (01) | DRG 788 ==
LOC: OB 05:31
PROVIDERS: ADMIT Nurse Practitioner Obstetrics & Gynecology; ATTEND Nurse Practitioner Obstetrics & Gynecology
CPT/HCPCS: 36415; 59025; 80048; 80305; 81001; 82800; 85007; 85014; 85018; 85025; 86850; 87086; G0238; J2405